=== PATIENT | male | born 1995 | race Caucasian/White ===

== ENCOUNTER 2019-01-24 09:22 | Emergency (ER) | payer OTHER ==
[2019-01-24 09:39] VITALS: BP 113/77; PULSE 82; TEMP 98.4; BMI 25.8
[2019-01-24] MEDS ORDERED: KETOROLAC TROMETHAMINE 30 MG/1 ML VIAL IM ONE (10:06)
[2019-01-24] MEDS ORDERED: KETOROLAC TROMETHAMINE 30 MG/1 ML VIAL ONE (10:08)
--- NOTE | 2019-01-24 10:12 | PDOC ---
History of Present Illness - General Chief Complaint: Abscess Boil Stated Complaint: BUMP ON LOWER BACK Time Seen by Provider: 01/24/19 09:41 History Source: Patient Exam Limitations: No Limitations - History of Present Illness Initial Comments: 01/24/19 10:12 23 year old male with no significant medical or surgical history presents with reports of abscess to right lower back since Saturday, (7 days ago). Seen at doctor's office, prescribed bactrim DS but reports pain still present and area is painful making it hard for him to sit. Denies fever or chills, taking antibiotics as prescribed. Timing/Duration: reports: week Severity: Yes: moderate Location: reports: torso Respiratory Risk Factors: reports: no cause identified Associated Symptoms: reports: denies symptoms Past History - Travel Traveled outside of the country in the last 30 days: No Close contact w/someone who was outside of country & ill: No - Past Medical History Allergies/Adverse Reactions: Allergies Allergy/AdvReac Type Severity Reaction Status Date / Time No Known Allergies Allergy Verified 01/24/19 09:32 Home Medications: Ambulatory Orders Cephalexin [Keflex] 500 mg PO TID #21 capsule 01/24/19 Ibuprofen 600 mg PO TID #21 tablet 01/24/19 Sulfamethoxazole/Trimethoprim [Bactrim Ds -] 1 tab PO BID #14 tablet 01/24/19 Sulfamethoxazole/Trimethoprim [Sulfamethoxazole-Tmp Ds Tablet] 1 each PO BID 04/02 COPD: No - Immunization History Immunization Up to Date: No - Psycho Social/Smoking Cessation Hx Smoking History: Never smoked Have you smoked in the past 12 months: No Information on smoking cessation initiated: No Hx Alcohol Use: No Drug/Substance Use Hx: No Review of Systems - Review of Systems Able to Perform ROS?: Yes Is the patient limited [place] proficient: No Constitutional: No: Chills, Fever, Weakness HEENTM: No: Nose Congestion, Hearing Loss, Throat Pain, Throat Swelling Respiratory: No: Cough, Orthopnea, Shortness of Breath, SOB at Rest, Stridor, Wheezing Cardiac (ROS): No: Chest Pain, Lightheadedness, Palpitations ABD/GI: No: Nausea, Poor Appetite, Poor Fluid Intake, Vomiting, Indigestion, Abdominal cramping Musculoskeletal: No: Back Pain, Muscle Weakness Integumentary: Yes: Erythema, Lumps Neurological: No: Headache, Numbness, Paresthesia, Seizure, Weakness Psychiatric: No: Stressors, Sleep Pattern Change, Mood Swings Endocrine: No: Intolerance to Heat, Increased Hunger, Increased Urine, Unexplained Weight Gain *Physical Exam - Vital Signs Last Vital Signs Temp Pulse Resp BP Pulse Ox 98.4 F 82 18 113/77 99 01/24/19 09:29 01/24/19 09:29 01/24/19 09:29 01/24/19 09:29 01/24/19 09:29 - Physical Exam General Appearance: Yes: Nourished, Appropriately Dressed, Apparent Distress HEENT: positive: CHARLENE, TMs Normal, Pharynx Normal Neck: positive: Supple. negative: Lymphadenopathy (R), Lymphadenopathy (L) Respiratory/Chest: positive: Lungs Clear Cardiovascular: positive: Regular Rhythm, Regular Rate Integumentary: positive: Erythema, Other (+erythematous, indurated area in right lower back, + tender to touch) Neurologic: positive: Fully Oriented, Alert Medical Decision Making - Medical Decision Making 01/24/19 10:18 23 year old male with no significant medical or surgical history presents with reports of abscess to right lower back since Saturday, (7 days ago). Seen at doctor's office, prescribed bactrim DS but reports pain still present and area is painful making it hard for him to sit. Denies fever or chills, taking antibiotics as prescribed. abscess instruct patient to - apply warm compress to area for 20 minutes 3 times daily -take medication as prescribed -return to ed for fever, chills or worsening of symptoms Discharge - Discharge Information Problems reviewed: Yes Clinical Impression/Diagnosis: Abscess Condition: Stable - Admission No - Additional Discharge Information Prescriptions: Cephalexin [Keflex] 500 mg PO TID #21 capsule Ibuprofen 600 mg PO TID #21 tablet Sulfamethoxazole/Trimethoprim [Bactrim Ds -] 1 tab PO BID #14 tablet - Follow up/Referral - Patient Discharge Instructions Patient Printed Discharge Instructions: Boil Additional Instructions: - apply warm compress to area for 20 minutes 3 times daily -take medication as prescribed -return to ed for fever, chills or worsening of symptoms -take medication as prescribed - Post Discharge Activity Work/Back to School Note: Back to Work, Back to School
== END 2019-01-24 10:28 | disposition home or self-care (01) ==
LOC: JER 09:22
PROC: 3E0233Z Introduction of Anti-inflammatory into Muscle, Percutaneous Approach (ICD-10-PCS; principal; 2019-01-24)
DX: L02.212 Cutaneous abscess of back [any part, except buttock and flank] (principal)
CPT/HCPCS: 96372; 99281-25